=== PATIENT | female | born 1995 | race Two or more races ===

== ENCOUNTER 2017-07-25 07:07 | Emergency (ER) | payer BC ==
[2017-07-25] MEDS ORDERED: NS 1,000 ML IV ONE (07:58)
--- NOTE | 2017-07-25 08:00 | EDPHY ---
H & P Stated Complaint: SI/took 10 pills Time Seen by Provider: 07/25/17 07:45 HPI/ROS: CHIEF COMPLAINT: Depressed HISTORY OF PRESENT ILLNESS: The patient is a 22-year-old female with history of depression who states that she took 12 Lexapro about an hour ago because her "parents were not taking her depression seriously". She is also said recent because of break-up of her boyfriend of 18 months. She is a law student. She sees a counselor. Both parents are here with her and brought her in. She denies true suicidality. She has never attempted suicide. REVIEW OF SYSTEMS: Constitutional: denies: chills, fever, recent illness, recent injury EENTM: denies: blurred vision, double vision, nose congestion Respiratory: denies: cough, shortness of breath Cardiac: denies: chest pain, irregular heart rate, lightheadedness, palpitations Gastrointestinal/Abdominal: denies: abdominal pain, diarrhea, nausea, vomiting, blood streaked stools Genitourinary: denies: dysuria, frequency, hematuria, pain Musculoskeletal: denies: joint pain, muscle pain Skin: denies: lesions, rash, jaundice, bruising Neurological: denies: headache, numbness, paresthesia, tingling, dizziness, weakness Hematologic/Lymphatic: denies: blood clots, easy bleeding, easy bruising Immunologic/allergic: denies: HIV/AIDS, transplant EXAM: GENERAL: Well-appearing, well-nourished and in no acute distress. HEAD: Atraumatic, normocephalic. EYES: Pupils equal round and reactive to light, extraocular movements intact, sclera anicteric, conjunctiva are normal. ENT: TMs normal, nares patent, oropharynx clear without exudates. Moist mucous membranes. NECK: Normal range of motion, supple without lymphadenopathy or JVD. LUNGS: Breath sounds clear to auscultation bilaterally and equal. No wheezes rales or rhonchi. HEART: Regular rate and rhythm without murmurs, rubs or gallops. ABDOMEN: Soft, nontender, normoactive bowel sounds. No guarding, no rebound. No masses appreciated. BACK: No CVA tenderness, no spinal tenderness, step-offs or deformities EXTREMITIES: Normal range of motion, no pitting or edema. No clubbing or cyanosis. NEUROLOGICAL: Cranial nerves II through XII grossly intact. Normal speech, normal gait. 5/5 strength, normal movement in all extremities, normal sensation PSYCH: Normal mood, normal affect. SKIN: Warm, dry, normal turgor, no visible rashes or lesions. Source: Patient Exam Limitations: No limitations - Medical/Surgical History Hx Asthma: No Hx Chronic Respiratory Disease: No Hx Diabetes: No Hx Cardiac Disease: No Hx Renal Disease: No Hx Cirrhosis: No Hx Alcoholism: No Hx HIV/AIDS: No Hx Splenectomy or Spleen Trauma: No Other PMH: depression - Family History Significant Family History: No pertinent family hx - Social History Smoking Status: Never smoked Alcohol Use: Sober Drug Use: None Constitutional: Initial Vital Signs Temperature (C) 37.0 C 07/25/17 07:11 Heart Rate 63 07/25/17 07:11 Respiratory Rate 18 07/25/17 07:11 Blood Pressure 134/83 H 07/25/17 07:11 O2 Sat (%) 97 07/25/17 07:11 O2 Delivery Mode Room Air Allergies/Adverse Reactions: Penicillins Allergy (Verified 07/25/17 07:09) Home Medications: Medication Instructions Recorded Azithromycin [Zithromax tab 250 mg] 250 mg PO DAILY #7 tab 10/01/09 Escitalopram Oxalate 07/25/17 Medical Decision Making ED Course/Re-evaluation: 12:00 p.m. I received a call from Dr. Zimmerman who states that the mom is texting her incessantly and threatening to fire her as a primary if they are not allowed to leave the ER. She has advise them not to until they see mental health. She is not on a hold. 1:20 p.m. the patient has been evaluated by Mental Health. They feel that she is safe to go home. She will follow up with her counselor tomorrow. Differential Diagnosis: Partial list of the Differential diagnosis considered include but were not limited to; depression, anxiety, suicidality , overdose and although unlikely based on the history and physical exam, I also considered infection, head injury. - Data Points Laboratory Results: Laboratory Results 07/25/17 08:13 07/25/17 08:13 Medications Given: Discontinued Medications Sodium Chloride (Ns) 1,000 mls @ 0 mls/hr IV EDNOW ONE; Wide Open PRN Reason: Protocol Stop: 07/25/17 07:59 Last Admin: 07/25/17 08:20 Dose: 1,000 mls Departure - Departure Disposition: Home, Routine, Self-Care Clinical Impression: Depression Qualifiers: Depression Type: unspecified Qualified Code(s): F32.9 - Major depressive disorder, single episode, unspecified Condition: Fair Instructions: Depression (DC) Referrals: Paulette Zimmerman MD [Primary Care Provider] - As per Instructions
[2017-07-25 08:22] LABS: PLATELET COUNT 211 10^3/uL (150-400)
[2017-07-25 13:37] VITALS: BP 118/68
== END 2017-07-25 13:22 | disposition home or self-care (01) ==
PROC: GZ11ZZZ Psychological Tests, Personality and Behavioral (ICD-10-PCS; principal; 2017-07-25)
DX: F32.9 Major depressive disorder, single episode, unspecified (principal); E86.9 Volume depletion, unspecified
CPT/HCPCS: 80305; G0480